=== PATIENT | female | born 1940 | race Caucasian/White ===

== ENCOUNTER 2019-04-06 10:51 | Outpatient (CLI) | payer MEDICARE ==
--- NOTE | 2019-04-06 13:29 | MRI ---
LUMBAR SPINE MRI NONCONTRAST: Date: 04/06/19 INDICATION: Low back pain with right lower extremity radiculopathy. No prior comparison imaging. FINDINGS: The conus medullaris terminates at the L1-2 level. 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 Marrow signal is unremarkable. No vertebral body h eight loss or significant subluxation. Dependent edema of the subcutaneous tissues is seen. 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 L5-S1: Disc osteophyte and facet hypertrophy results in mild to moderate central canal stenosis and crowing of the traversing L1 nerve roots. There is mild bilateral neural foraminal narrowing. L4-5: Moderate to severe central canal stenosis on the basis of disc osteophyte and facet hypertroph y. There is mild left neural foraminal narrowing. No significant right neural foraminal narrowing. L3-4: Mild to moderate central canal stenosis due to broad based disc osteophyte and facet hypertrop hy. No high grade foraminal stenosis. L2-3: Mild effacement of ventral thecal sac due to disc osteophyte formation. There is mild bilatera l neural foraminal narrowing. L1-2: Slight effacement of ventral thecal sac without high grade central canal or significant neural foraminal stenosis. 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 IMPRESSION: 1. 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 2. 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 POS: [facility]
== END 2019-04-06 10:52 | disposition home or self-care (01) ==
LOC: SCSMRI 10:51
PROVIDERS: ATTEND Internal Medicine
DX: M47.26 Other spondylosis with radiculopathy, lumbar region (principal)
CPT/HCPCS: 72148